=== PATIENT | male | born 1955 | race African-American/Black ===

== ENCOUNTER 2018-01-10 05:21 | Inpatient (IN) | payer MEDICARE, MEDICAID ==
[~2018-01-10] VITALS: Ht 180.3 cm; Wt 71.2 kg
[2018-01-10] MEDS ORDERED: LACTATED RINGERS 1,000 ML IV SCH (06:00)
[2018-01-10] MEDS ORDERED: THROMBIN (BOVINE) 5000 UNITS/VIAL TOP ONE (06:32)
[2018-01-10] MEDS ORDERED: NORMAL SALINE 0.9% 10 ML SYR ONE (06:32)
[2018-01-10] MEDS ORDERED: BACITRACIN 50,000 UNITS/VIAL ONE (06:32)
[2018-01-10] MEDS ORDERED: GELATIN SPONGE,COMPRESSED SZ 100 ONE (06:32)
[2018-01-10] MEDS ORDERED: LIDOCAINE HCL/EPINEPHRINE 1%-EPI 1:100,000 20 ML VIAL ONE (06:32)
[2018-01-10] MEDS ORDERED: ROCURONIUM BROMIDE 10MG/ML VIAL 5ML IV ONE (07:09)
[2018-01-10] MEDS ORDERED: ETOMIDATE 2MG/ML 10ML VIAL IV ONE (07:10)
[2018-01-10] MEDS ORDERED: SUCCINYLCHOLINE CHLORIDE 200MG/10ML IV ONE (07:10)
[2018-01-10] MEDS ORDERED: FENTANYL CITRATE/PF 50MCG/ML 5ML VIAL ONE (07:12)
[2018-01-10] MEDS ORDERED: MIDAZOLAM HCL 2 MG/2 ML VIAL ONE (07:12)
[2018-01-10] MEDS ORDERED: PROPOFOL 200MG/20ML VIAL IV ONE (07:27)
[2018-01-10] MEDS ORDERED: CEFAZOLIN SODIUM 1000MG/VIAL ONE (07:29)
[2018-01-10] MEDS ORDERED: PROPOFOL 10MG/ML 100ML 100 ML IV ONE (07:30)
[2018-01-10] MEDS ORDERED: GLYCOPYRROLATE 0.2 MG/ML 2ML VIAL ONE (08:09)
[2018-01-10] MEDS ORDERED: NEOSTIGMINE METHYLSULFATE 1MG/ML 10 ML VIAL ONE (08:09)
[2018-01-10] MEDS ORDERED: BIMA2.5D4 BOTHEYE (08:13)
[2018-01-10] MEDS ORDERED: TAMS-11 PO (08:13)
[2018-01-10] MEDS ORDERED: FLUT1DIS3 IH (08:13)
[2018-01-10] MEDS ORDERED: HYDR-4009 PO (08:13)
[2018-01-10] MEDS ORDERED: METOCLOPRAMIDE HCL 10MG/2ML VIAL ONE (08:17)
[2018-01-10] MEDS ORDERED: ONDANSETRON HCL 4MG/2ML INJ ONE (08:17)
[2018-01-10] MEDS ORDERED: CLONIDINE 0.1MG TABLET PO PRN (08:30)
[2018-01-10] MEDS ORDERED: IPRATROPIUM/ALBUTEROL 0.5-3(2.5)MG/3ML NEB INH PRN (08:30)
[2018-01-10] MEDS ORDERED: ACETAMINOPHEN 325MG TABLET PO PRN ×2 (08:30→18:45)
[2018-01-10] MEDS ORDERED: MEPERIDINE HCL/PF 25MG/ML CPJ IV PRN (08:30)
[2018-01-10] MEDS ORDERED: MORPHINE SULFATE 4 MG/ML CPJ (NOT FOR IM USE) IV PRN (08:30)
[2018-01-10] MEDS ORDERED: ONDANSETRON HCL 4MG/2ML INJ IV PRN ×3 (08:30→18:45)
[2018-01-10] MEDS ORDERED: FENTANYL CITRATE/PF 50MCG/ML 2ML VIAL IV PRN (08:30)
[2018-01-10] MEDS ORDERED: HYDRALAZINE 20MG/ML VIAL ONE (08:40)
[2018-01-10] MEDS ORDERED: ESMOLOL HCL 10MG/ML 10ML VIAL IV ONE (08:50)
[2018-01-10] MEDS ORDERED: DIPHENHYDRAMINE INJ IV PRN (09:15)
[2018-01-10] MEDS ORDERED: ONDANSETRON INJ IV PRN (09:15)
[2018-01-10] MEDS ORDERED: MORPHINE PCA 50MG/50ML IV PRN (09:15)
[2018-01-10] MEDS ORDERED: NALOXONE INJ IV PRN (09:15)
[2018-01-10] MEDS: HYDROMORPHONE HCL/PF 2MG/ML CPJ IV PRN ×3 (09:17→10:26)
[2018-01-10 12:30] VITALS: BP 103/60
[2018-01-10] MEDS ORDERED: CEFAZOLIN SODIUM 1000MG/VIAL IV SCH (14:00)
[2018-01-10] MEDS: CEFAZOLIN 1000MG PREMIX 50 ML IV SCH ×2 (14:50→21:07)
[2018-01-10 16:00] VITALS: BP 106/51
[2018-01-10] MEDS: DEXT 5%/LACTATED RINGERS 1,000 ML IV SCH ×2 (18:10→19:29)
[2018-01-10] MEDS ORDERED: ACETAMINOPHEN 650MG SUPP PR PRN (18:45)
[2018-01-10] MEDS ORDERED: IPRATROPIUM/ALBUTEROL 0.5-3(2.5)MG/3ML NEB HHN PRN (18:45)
[2018-01-10] MEDS ORDERED: ACETAMINOPHEN 650MG/20.3ML UDC GT PRN (18:45)
[2018-01-10 20:00] VITALS: BP 117/51
[2018-01-10] MEDS: TAMSULOSIN HCL 0.4MG SR CAPSULE PO SCH (21:08)
[2018-01-11] VITALS: BP 121/59
[2018-01-11 02:09] LABS: CREATINE KINASE 393 IU/L (39-308); CREATINE KINASE MB FRACTION 2.5 ng/mL (0.5-3.6)
[2018-01-11 03:41] LABS: CLARITY URINE CLEAR (CLEAR); COLOR URINE YELLOW (YELLOW); KETONES URINE NEGATIVE (NEGATIVE); LEUKOCYTE ESTERASE URINE 1+ (NEGATIVE); NITRITE URINE NEGATIVE (NEGATIVE); OCCULT BLOOD URINE 2+ (NEGATIVE); PH URINE 5.5 (4.5-8.0); PROTEIN URINE NEGATIVE (NEGATIVE); SPECIFIC GRAVITY URINE 1.018 (1.005-1.030); UROBILINOGEN URINE 0.2 E.U./dL (0.2-1.0)
[2018-01-11 04:00] VITALS: BP 115/54
[2018-01-11 04:08] LABS: *AMPHETAMINES SCREEN URINE NEGATIVE (NEGATIVE); *BARBITURATES SCREEN URINE NEGATIVE (NEGATIVE); *BENZODIAZEPINES SCREEN URINE NEGATIVE (NEGATIVE); *COCAINE SCREEN URINE NEGATIVE (NEGATIVE); METHADONE URINE SCREEN NEGATIVE (NEGATIVE); OPIATES URINE SCREEN PRESUMTIVE POSITIVE (NEGATIVE)
[2018-01-11 04:09] LABS: CANNABINOID URINE SCREEN PRESUMTIVE POSITIVE (NEGATIVE); PHENCYCLIDINE URINE SCREEN NEGATIVE (NEGATIVE)
[2018-01-11] MEDS: DEXT 5%/LACTATED RINGERS 1,000 ML IV SCH ×2 (05:23→14:14)
[2018-01-11] MEDS: CEFAZOLIN 1000MG PREMIX 50 ML IV SCH ×3 (05:23→21:41)
[2018-01-11 08:00] VITALS: BP 121/57
[2018-01-11 09:58] LABS: HEMATOCRIT. 33.4 % (42.0-52.0); HEMOGLOBIN. 11.2 g/dL (14.0-18.0); MEAN CORPUSCULAR HEMOGLOBIN 28.3 pg (28.0-32.0); MEAN CORPUSCULAR VOLUME 84.3 fL (80.0-94.0); MEAN PLATELET VOLUME 10.6 fl (7.4-10.4); PLATELET 140 x1000/uL (130-400); RED BLOOD CELL COUNT 3.96 mill/uL (4.7-6.1); RED CELL DISTRIBUTION WIDTH 14.3 % (11.6-14.6)
[2018-01-11 10:31] LABS: CHLORIDE 108 mEq/L (98-107)
[2018-01-11 10:39] LABS: LDL CHOLESTEROL 94 mg/dL (5-100); PHOSPHORUS 1.7 mg/dL (2.5-4.9)
[2018-01-11 10:41] LABS: CREATINE KINASE 522 IU/L (39-308)
[2018-01-11 10:42] LABS: HDL CHOLESTEROL 47 mg/dL (40-59); T4 FREE 1.26 ng/dL (0.76-1.46)
[2018-01-11 12:00] VITALS: BP 111/53
[2018-01-11] MEDS ORDERED: POTASSIUM CHLORIDE 20MEQ TABLET SR PO NR (15:00)
[2018-01-11 16:00] VITALS: BP 128/65
[2018-01-11 17:07] LABS: PLATELET ESTIMATE NORMAL
[2018-01-11 20:00] VITALS: BP 118/57
[2018-01-11] MEDS: TAMSULOSIN HCL 0.4MG SR CAPSULE PO SCH (21:41)
[2018-01-12] VITALS: BP 103/53
[2018-01-12 04:00] VITALS: BP 123/56
[2018-01-12] MEDS: CEFAZOLIN 1000MG PREMIX 50 ML IV SCH (05:25)
[2018-01-12] MEDS: DEXT 5%/LACTATED RINGERS 1,000 ML IV SCH (05:25)
[2018-01-12 08:00] VITALS: BP 125/63
[2018-01-12] MEDS ORDERED: HYDROCODONE/ACETAMINOPHEN 5/325MG TABLET PO PRN (09:45)
[2018-01-12] MEDS ORDERED: HYDROCODONE/ACETAMINOPHEN 10/325MG TABLET PO PRN (09:45)
[2018-01-12 10:19] LABS: CHLORIDE 108 mEq/L (98-107)
[2018-01-12 12:00] VITALS: BP 125/62
[2018-01-12 14:41] VITALS: BP 125/62
[2018-01-12 16:00] VITALS: BP 133/66
[2018-01-12] MEDS ORDERED: DOCUSATE SODIUM 100MG CAPSULE PO SCH (17:00)
[2018-01-12] MEDS ORDERED: POLYETHYLENE GLYCOL 3350 (17GM) 1 DOSE PACK PO SCH (21:00)
[2018-02-07] MEDS ORDERED: METOPROLOL TARTRATE 5MG/5ML VIAL IV ONE (09:02)
[2018-02-07] MEDS ORDERED: NEOSTIGMINE METHYLSULFATE 1MG/ML 10 ML VIAL ONE (09:02)
[2018-02-07] MEDS ORDERED: ESMOLOL HCL 10MG/ML 10ML VIAL IV ONE (09:02)
[2018-02-07] MEDS ORDERED: METOCLOPRAMIDE HCL 10MG/2ML VIAL ONE (09:34)
[2018-02-07] MEDS ORDERED: ONDANSETRON HCL 4MG/2ML INJ ONE (09:34)
== END 2018-01-12 16:16 | disposition home or self-care (01) | DRG 454 ==
LOC: ORIP 05:21 → 6EST 12:22
PROVIDERS: ADMIT Neurological Surgery; ATTEND Internal Medicine
PROC: 0SG30AJ Fusion of Lumbosacral Joint with Interbody Fusion Device, Posterior Approach, Anterior Column, Open Approach (ICD-10-PCS; 2018-01-10)
PROC: 0SG3071 Fusion of Lumbosacral Joint with Autologous Tissue Substitute, Posterior Approach, Posterior Column, Open Approach (ICD-10-PCS; principal; 2018-01-10 07:00)
PROC: 5A09357 Assistance with Respiratory Ventilation, Less than 24 Consecutive Hours, Continuous Positive Airway Pressure (ICD-10-PCS; 2018-01-11)
PROC: 0SB40ZZ Excision of Lumbosacral Disc, Open Approach (ICD-10-PCS; 2018-01-11)
DX: M47.27 Other spondylosis with radiculopathy, lumbosacral region (principal); G82.20 Paraplegia, unspecified; D64.9 Anemia, unspecified; D72.829 Elevated white blood cell count, unspecified; M51.17 Intervertebral disc disorders with radiculopathy, lumbosacral region; E83.39 Other disorders of phosphorus metabolism; E83.42 Hypomagnesemia; E87.6 Hypokalemia; G89.4 Chronic pain syndrome; H54.7 Unspecified visual loss; N40.0 Benign prostatic hyperplasia without lower urinary tract symptoms; H26.9 Unspecified cataract; H35.9 Unspecified retinal disorder; F12.90 Cannabis use, unspecified, uncomplicated; J45.909 Unspecified asthma, uncomplicated; R50.82 Postprocedural fever
CPT/HCPCS: 36415; 71045; 72100; 80048; 80061; 80305; 82550; 82553; 83036; 83735; 84100; 84439; 84443; 84481; 84484; 86850; 86900; 88304; 88311; 93970; 94660; 95863; 95925; 95926; 97116; 97162; 97166; 97530; 97535; A4216; C1713; J0330; J0360; J0690; J1170; J2175; J2250; J2270; J2405; J2704; J2710; J2765; J3010; J3490; J7030; J7050; J7120

== ENCOUNTER → 2018-04-08 | Outpatient (CLI) | payer MEDICARE, MEDICAID ==
[~2018-04-08] MED LIST: BIMA2.5D4 BOTHEYE; FLUT1DIS3 IH; TAMS-11 PO
== END | disposition home or self-care (01) ==
LOC: RAD 12:58
PROVIDERS: ATTEND Neurological Surgery
DX: M47.816 Spondylosis without myelopathy or radiculopathy, lumbar region (principal); M48.061 Spinal stenosis, lumbar region without neurogenic claudication
CPT/HCPCS: 72114

== ENCOUNTER → 2018-07-25 | Outpatient (CLI) | payer MEDICARE, MEDICAID | END | disposition home or self-care (01) | LOC: RAD 09:48 | DX: M25.511 Pain in right shoulder (principal); M25.512 Pain in left shoulder; M54.5 Low back pain | CPT/HCPCS: 73030 ==